=== PATIENT | female | born 1965 | race Caucasian/White ===

== ENCOUNTER 2017-06-03 12:32 | Outpatient (CLI) | payer OTHER | END 2017-06-03 14:08 | disposition home or self-care (01) | LOC: MRI 12:32 | DX: M25.571 Pain in right ankle and joints of right foot (principal) | CPT/HCPCS: 73721 ==

== ENCOUNTER 2021-02-13 08:42 | Outpatient (CLI) | payer OTHER | END 2021-02-13 08:53 | disposition home or self-care (01) | LOC: SONOGRAMA 08:42 | DX: M25.561 Pain in right knee (principal); M25.562 Pain in left knee; N83.01 Follicular cyst of right ovary; D27.0 Benign neoplasm of right ovary ==

== ENCOUNTER 2021-03-10 14:50 | Outpatient (CLI) | payer OTHER | END 2021-03-10 14:58 | disposition home or self-care (01) | LOC: MRI 14:50 | PROVIDERS: ATTEND Physical Medicine & Rehabilitation | DX: M48.02 Spinal stenosis, cervical region (principal); M54.2 Cervicalgia | CPT/HCPCS: 72141 ==

== ENCOUNTER 2021-06-30 18:36 | Emergency (ER) | payer OTHER ==
[~2021-06-30] VITALS: Ht 162.6 cm; Wt 67.1 kg
[2021-06-30] MEDS ORDERED: GABAPENTIN800 M1 PO (19:10)
[2021-06-30] MEDS ORDERED: ETODOLAC500 MG PO (19:10)
[2021-06-30] MEDS ORDERED: LORAZEPAM0.5 MG PO (19:11)
[2021-06-30] MEDS ORDERED: RESTORIL30 MG PO (19:11)
== END 2021-06-30 20:51 | disposition home or self-care (01) ==
LOC: ER 18:36
DX: S30.0XXA Contusion of lower back and pelvis, initial encounter (principal); S00.93XA Contusion of unspecified part of head, initial encounter; W18.30XA Fall on same level, unspecified, initial encounter; Y92.018 Other place in single-family (private) house as the place of occurrence of the external cause; M54.50 Low back pain, unspecified; Z88.0 Allergy status to penicillin